=== PATIENT | female | born 1975 | race Two or more races ===

== ENCOUNTER → 2019-02-14 | Outpatient (CLI) | payer OTHER ==
[~2019-02-14] MED LIST: MOTRIN800 MG PO; Mylicon 125MG PO; OXYC1TAB9 PO; TOPROL XL50 MG PO
== END | disposition home or self-care (01) ==
LOC: RAD
DX: I10 Essential (primary) hypertension (principal)

== ENCOUNTER 2019-02-16 07:00 | Day surgery (SDC) | payer OTHER | END 2019-02-16 16:10 | disposition home or self-care (01) | LOC: CIR.AMB | DX: D24.1 Benign neoplasm of right breast (principal) ==